=== PATIENT | male | born 1960 | race Caucasian/White ===

== ENCOUNTER 2018-03-24 20:15 | Emergency (ER) | payer OTHER ==
[~2018-03-24] VITALS: Ht 180.3 cm; Wt 76.7 kg
[2018-03-24] MEDS ORDERED: Bactrim Ds Tab1 EACH PO (21:11)
[2018-03-24] MEDS ORDERED: CEPH500 PO (21:11)
== END 2018-03-24 21:19 | disposition home or self-care (01) ==
LOC: ER 20:15
DX: L03.115 Cellulitis of right lower limb (principal)
CPT/HCPCS: 99283